=== PATIENT | female | born 1975 | race Two or more races ===

== ENCOUNTER 2016-10-29 11:31 | Emergency (ER) | payer BC ==
[~2016-10-29] VITALS: Ht 162.6 cm; Wt 56.2 kg
[~2016-10-29 11:31] MED LIST: IBUPROFEN400 MG ORAL; NITROFURANTOIN100 M2 ORAL; NKM; REGLAN10 MG ORAL
[2016-10-29 11:49] VITALS: BP 127/75
[2016-10-29] MEDS ORDERED: ROBAXIN-750750 MG PO (11:54)
[2016-10-29] MEDS ORDERED: IBUPROFEN600 MG ORAL (11:54)
[2016-10-29] MEDS ORDERED: Ketorolac 60mg Inj IM ONE (12:00)
[2016-10-29] MEDS ORDERED: Methocarbamol 750mg tab ORAL ONE (12:00)
[2016-10-29 12:08] VITALS: BP 127/75
--- NOTE | 2016-10-29 12:24 | Emergency Room Report ---
History of Present Illness General Chief Complaint: Back Pain-No Injury Source: Patient Present Illness HPI [id number] [employer] patient with midline lower back pain s/p heavy lifting yesterday. Took motrin last night with improvement. Pain worse with movement, bending over. Denies urinary complaints, lower extrem weakness. Denies other med problems. Allergies: Coded Allergies: No Known Allergies (Unverified , 04/29/13) Patient History Past Medical History: none Past Surgical History: none Pertinent Family History: none Social History: Denies: alcohol use, drug use, smoking Last Menstrual Period: 10/25/16 Immunizations: UTD Reviewed Nursing Documentation: PMH: Agreed, PSxH: Agreed Nursing Documentation-PMH Past Medical History: No History, Except For Hx Cardiac Problems: Yes - HX PALPITATIONS Hx Cancer: No Hx Gastrointestinal Problems: No Hx Neurological Problems: No Review of Systems All Other Systems: negative except mentioned in HPI Physical Exam Vital Signs Date Time Temp Pulse Resp B/P Pulse Ox O2 Delivery O2 Flow Rate FiO2 10/29/16 11:40 98.1 64 17 127/75 98 Room Air Sp02 EP Interpretation: reviewed, normal General Appearance: normal inspection, well appearing, no apparent distress, alert Head: atraumatic ENT: normal ENT inspection, hearing grossly normal, normal voice Neck: normal inspection, full range of motion, supple, no bony tend Respiratory: normal inspection, lungs clear, normal breath sounds, no respiratory distress, no retraction, no wheezing Cardiovascular #1: regular rate, rhythm, no edema Gastrointestinal: normal inspection, normal bowel sounds, non tender, soft, no guarding, no hernia Genitourinary: no CVA tenderness Musculoskeletal: normal inspection, back normal, normal range of motion, John' s Sign negative, other - Mild right paravertebral tpp Neurologic: normal inspection, alert, oriented x3, responsive, licsw III-XII nml as tested, speech normal Psychiatric: normal inspection, judgement/insight normal, mood/affect normal Skin: normal inspection, normal color, no rash Medical Decision Making Diagnostic Impression: Primary Impression: Back pain Qualified Codes: M54.5 - Low back pain ER Course A: low suspicion for cord compression given well appearance,right paravertebral ttp, no focal neuro deficits, absence of midline ttp/masses and pain worse with movement with known exacerbating activity Rx Robaxin, Ibuprofen PMD followup as needed Last Vital Signs Date Time Temp Pulse Resp B/P Pulse Ox O2 Delivery O2 Flow Rate FiO2 10/29/16 12:08 98.1 64 17 127/75 98 Room Air Status: improved Disposition: HOME, SELF-CARE Condition: Improved Scripts Ibuprofen* (MOTRIN*) 600 Mg Tablet 600 MG ORAL THREE TIMES A DAY for back pain for 7 Days, #30 TAB 0 Refills Prov: GALINA MASON M.D. 10/29/16 Methocarbamol* (ROBAXIN-750*) 750 Mg Tablet 750 MG PO TID for 7 Days, #30 TAB 0 Refills Prov: GALINA MASON M.D. 10/29/16 Referrals: NOT CHOSEN IPA/,REFERRING (PCP) Patient Instructions: Back Pain, Adult Additional Instructions: - Take ibuprofen with robaxin up to 3x a day with food for pain - Stretch back muscles, apply heat GALINA MASON M.D. Oct 29, 2016 12:23
== END 2016-10-29 12:06 | disposition home or self-care (01) ==
LOC: EMR 12:00
DX: M54.5 Low back pain (principal); X50.0XXA Overexertion from strenuous movement or load, initial encounter; Y92.89 Other specified places as the place of occurrence of the external cause
CPT/HCPCS: 96372; 99284

== ENCOUNTER 2016-12-12 09:08 | Emergency (ER) | payer BC ==
[~2016-12-12] VITALS: Ht 162.6 cm; Wt 51.3 kg
[~2016-12-12 09:08] MED LIST changes: +IBUPROFEN600 MG ORAL; +ROBAXIN-750750 MG PO
[2016-12-12 09:13] VITALS: BP 110/72
[2016-12-12] MEDS ORDERED: Tubing IV Cassette IV ONE (09:49)
[2016-12-12 10:13] LABS: APPEARANCE,URINE SLIGHTLY CLOUDY; KETONES,URINE NEGATIVE (NEGATIVE); NITRITE,URINE NEGATIVE (NEGATIVE); PH,URINE 6.5 (4.5-8.0); PROTEIN,URINE NEGATIVE (NEGATIVE); UROBILINOGEN,URINE NORMAL MG/DL (0.0-1.0)
[2016-12-12 10:18] LABS: BASOPHILS % (AUTO) 1.1 % (0.0-2.0); EOSINOPHILS % (AUTO) 2.2 % (0.0-3.0); LYMPHOCYTES % (AUTO) 38.6 % (20.0-45.0); MEAN CORPUSCULAR HEMOGLOBIN 31.4 PG (27.0-31.0); MEAN CORPUSCULAR HGB CONC 33.3 G/DL (32.0-36.0); MEAN CORPUSCULAR VOLUME 94 FL (80-99); MEAN PLATELET VOLUME 10.2 FL (6.5-10.1); MONOCYTES % (AUTO) 8.6 % (1.0-10.0); NEUTROPHILS % (AUTO) 49.5 % (45.0-75.0); PLATELET COUNT 168 K/UL (150-450); RED BLOOD COUNT 4.83 M/UL (4.20-5.40); RED CELL DISTRIBUTION WIDTH 11.6 % (11.6-14.8); WHITE BLOOD COUNT 4.6 K/UL (4.8-10.8)
[2016-12-12 10:27] LABS: BACTERIA,URINE FEW /HPF; LEUKOCYTE ESTERASE ,URINE 2+ (NEGATIVE); MUCUS,URINE OCCASIONAL /LPF (NONE/OCC); RBC,URINE 0-2 /HPF (0 - 2); SQUAMOUS EPITHELIAL CELL,UR FEW /LPF (NONE/OCC)
[2016-12-12 10:30] LABS: ALANINE AMINOTRANSFERASE 7 U/L (3-33); ALBUMIN/GLOBULIN RATIO 1.3 (1.0-2.7); ANION GAP 11 (5-15); ASPARTATE AMINO TRANSFERASE 15 U/L (5-40); CALCIUM 9.2 mg/dL (8.6-10.2); CARBON DIOXIDE 23 mEQ/L (20-30); CHLORIDE 105 mEQ/L (98-107); CREATININE 0.8 mg/dL (0.5-0.9); GLOMERULAR FILTRATION RATE > 60 mL/min (>60); HEMOLYSIS 7; LIPASE 28 U/L (< 60); POTASSIUM 3.8 mEQ/L (3.4-4.9); SODIUM 139 mEQ/L (135-145); TOTAL PROTEIN 7.9 g/dL (6.6-8.7)
[2016-12-12 11:30] VITALS: BP 107/64
--- NOTE | 2016-12-12 13:02 | Diagnostic Imaging Report ---
Indication:Abdominal pain Technique: Grayscale and duplex Doppler imaging of the abdomen performed. Comparison: None Findings: The liver, demonstrated part of the pancreas, aorta and IVC, both kidneys, spleen appear unremarkable. There is small gallbladder polyp present. CBD is 3.8 mm. There is no biliary ductal dilatation identified. Doppler evaluation of the main portal vein shows patency. There is no ascites. No hydronephrosis seen. Impression: No acute findings. Gallbladder polyp
--- NOTE | 2016-12-12 14:43 | Emergency Room Report ---
History of Present Illness General Chief Complaint: Abdominal Pain Source: Patient Present Illness HPI Patient complains of right upper quadrant abdominal pain. She states that this has been ongoing for the past couple weeks. She did make an appointment with her primary care physician he presents today because she was having increasing pain. She states the pain radiates to her back. She denies nausea or vomiting. She denies fever or chills. She denies dysuria or hematuria. She denies diarrhea. She has no other complaints. Allergies: Coded Allergies: No Known Allergies (Unverified , 04/29/13) Patient History Past Medical History: see triage record, other - Palpitations Social History: Denies: alcohol use, drug use, smoking Last Menstrual Period: 7-21 Now: No Reviewed Nursing Documentation: PMH: Agreed, PSxH: Agreed Nursing Documentation-PMH Past Medical History: No History, Except For Hx Cardiac Problems: Yes - HX PALPITATIONS Hx Cancer: No Hx Gastrointestinal Problems: No Hx Neurological Problems: No Review of Systems All Other Systems: negative except mentioned in HPI Physical Exam Vital Signs Date Time Temp Pulse Resp B/P Pulse Ox O2 Delivery O2 Flow Rate FiO2 12/12/16 09:13 98.2 73 18 110/72 98 Room Air Sp02 EP Interpretation: reviewed, normal General Appearance: no apparent distress, alert, GCS 15, non-toxic Head: normocephalic, atraumatic Eyes: bilateral eye PERRL, bilateral eye normal inspection ENT: hearing grossly normal, normal pharynx, no angioedema, normal voice Neck: full range of motion, supple/symm/no masses Respiratory: chest non-tender, lungs clear, normal breath sounds, speaking full sentences Cardiovascular #1: regular rate, rhythm, no edema Gastrointestinal: normal bowel sounds, soft, non-distended, no guarding, no rebound, tenderness - TTP RUQ Rectal: deferred Musculoskeletal: back normal, gait/station normal, normal range of motion, non- tender Neurologic: alert, oriented x3, responsive, motor strength/tone normal, sensory intact, speech normal Psychiatric: judgement/insight normal, memory normal, mood/affect normal, no suicidal/homicidal ideation Skin: normal color, no rash, warm/dry, well hydrated Medical Decision Making Diagnostic Impression: Primary Impression: Abdominal pain ER Course This patient has a right upper quadrant abdominal pain. She is to palpation on exam. I did obtain a right upper quadrant ultrasound which showed only an incidental finding of a small gallbladder polyp. I reassessed the patient she continued to have tenderness on exam and pain, so I felt it should obtain a CT of the abdomen and pelvis. Laboratory workup to include CBC, CMP, lipase and urinalysis are unremarkable. The patient is pending a CT abdomen and pelvis at this time. Please see Dr. Murphy note for results. Anticipate discharge home with followup with primary care physician if CT negative. Labs Test 12/12/16 09:45 White Blood Count 4.6 K/UL (4.8-10.8) Red Blood Count 4.83 M/UL (4.20-5.40) Hemoglobin 15.1 G/DL (12.0-16.0) Hematocrit 45.5 % (37.0-47.0) Mean Corpuscular Volume 94 FL (80-99) Mean Corpuscular Hemoglobin 31.4 PG (27.0-31.0) Mean Corpuscular Hemoglobin Concent 33.3 G/DL (32.0-36.0) Red Cell Distribution Width 11.6 % (11.6-14.8) Platelet Count 168 K/UL (150-450) Mean Platelet Volume 10.2 FL (6.5-10.1) Neutrophils (%) (Auto) 49.5 % (45.0-75.0) Lymphocytes (%) (Auto) 38.6 % (20.0-45.0) Monocytes (%) (Auto) 8.6 % (1.0-10.0) Eosinophils (%) (Auto) 2.2 % (0.0-3.0) Basophils (%) (Auto) 1.1 % (0.0-2.0) Urine Color Pale yellow Urine Appearance Slightly cloudy Urine pH 6.5 (4.5-8.0) Urine Specific [place] 1.005 (1.005-1.035) Urine Protein Negative (NEGATIVE) Urine Glucose (UA) Negative (NEGATIVE) Urine Ketones Negative (NEGATIVE) Urine Occult Blood Negative (NEGATIVE) Urine Nitrite Negative (NEGATIVE) Urine Bilirubin Negative (NEGATIVE) Urine Urobilinogen Normal MG/DL (0.0-1.0) Urine Leukocyte Esterase 2+ (NEGATIVE) Urine RBC 0-2 /HPF (0 - 2) Urine WBC 2-4 /HPF (0 - 2) Urine Squamous Epithelial Cells Few /LPF (NONE/OCC) Urine Bacteria Few /HPF (NONE) Urine Mucus Occasional /LPF Urine HCG, Qualitative Negative Sodium Level 139 mEQ/L (135-145) Potassium Level 3.8 mEQ/L (3.4-4.9) Chloride Level 105 mEQ/L (98-107) Carbon Dioxide Level 23 mEQ/L (20-30) Anion Gap 11 (5-15) Blood Urea Nitrogen 6 mg/dL (7-23) Creatinine 0.8 mg/dL (0.5-0.9) Estimat Glomerular Filtration Rate > 60 mL/min (>60) Glucose Level 93 mg/dL (74-106) Calcium Level 9.2 mg/dL (8.6-10.2) Total Bilirubin 0.4 mg/dL (0.0-1.2) Aspartate Amino Transf (AST/SGOT) 15 U/L (5-40) Alanine Aminotransferase (ALT/SGPT) 7 U/L (3-33) Alkaline Phosphatase 60 U/L (35-104) Total Protein 7.9 g/dL (6.6-8.7) Albumin 4.5 g/dL (3.5-5.2) Globulin 3.4 g/dL Albumin/Globulin Ratio 1.3 (1.0-2.7) Lipase 28 U/L (< 60) CT/MRI/US Diagnostic Results CT/MRI/US Diagnostic Results : Imaging Test Ordered: RUQ US: Impression Small GB polyp, OTW unremarkable. See official report. Last Vital Signs Date Time Temp Pulse Resp B/P Pulse Ox O2 Delivery O2 Flow Rate FiO2 12/12/16 11:30 61 16 107/64 95 Room Air 12/12/16 09:13 98.2 Condition: Stable Referrals: NON PHYSICIAN (PCP) TIEN DUENAS D.O. Dec 12, 2016 14:43
[2016-12-12] MEDS ORDERED: Lidocaine 2% Visc 15ml soln ORAL ONE (14:45)
[2016-12-12] MEDS ORDERED: Famotidine 20 MG/ 2ML VIAL IVP ONE (14:45)
[2016-12-12 16:00] VITALS: BP 115/61
--- NOTE | 2016-12-12 16:44 | Diagnostic Imaging Report ---
Indication: Abdominal pain Technique: Continuous helical transaxial imaging of the abdomen and pelvis was obtained from the lung bases to the pubic symphysis. No intravenous contrast was administered. Coronal 2-D reformats were also obtained. Total Dose length Product (DLP): [address] Dose Index Volume (CTDIvol): 10 mGy Comparison: none Findings: The lung bases appear clear. No nephrolithiasis or hydronephrosis demonstrated. The ureters are poorly seen distally due to relative absence of intra-abdominal fat. The appendix is normal. The bladder is distended. Uterus noted. Small amount of free fluid noted in the cul-de-sac. Bowel gas pattern appears unremarkable. Impression: Negative noncontrast CT abdomen pelvis The CT scanner at [facility] is accredited by the [employer] and the scans are performed using dose optimization techniques as appropriate to a performed exam including Automatic Exposure control.
[2016-12-12] MEDS ORDERED: BENTYL10 MG ORAL (16:54)
[2016-12-12] MEDS ORDERED: ZOFRAN4 M3 ORAL (16:54)
[2016-12-12] MEDS ORDERED: PRILOSEC10 M1 ORAL (16:54)
[2016-12-12 17:11] VITALS: BP 115/61
== END 2016-12-12 17:12 | disposition home or self-care (01) ==
LOC: EMR 09:48
DX: R10.11 Right upper quadrant pain (principal); R00.2 Palpitations
CPT/HCPCS: 36415; 74176; 76700; 80053; 81003; 81025; 83690; 85025; 96360; 96361; 96374; 99284; S0028

== ENCOUNTER 2017-04-04 09:19 | Emergency (ER) | payer BC ==
[~2017-04-04] VITALS: Ht 157.5 cm; Wt 49.9 kg
[~2017-04-04 09:19] MED LIST changes: +BENTYL10 MG ORAL; +PRILOSEC10 M1 ORAL; +ZOFRAN4 M3 ORAL
[2017-04-04 09:40] VITALS: BP 114/76
[2017-04-04] MEDS ORDERED: Sodium Chloride 500ML 500 ML IV ONE (09:50)
[2017-04-04 10:08] LABS: BASOPHILS % (AUTO) 0.9 % (0.0-2.0); EOSINOPHILS % (AUTO) 1.5 % (0.0-3.0); LYMPHOCYTES % (AUTO) 34.3 % (20.0-45.0); MEAN CORPUSCULAR HEMOGLOBIN 30.3 PG (27.0-31.0); MEAN CORPUSCULAR HGB CONC 32.6 G/DL (32.0-36.0); MEAN CORPUSCULAR VOLUME 93 FL (80-99); MEAN PLATELET VOLUME 8.6 FL (6.5-10.1); MONOCYTES % (AUTO) 8.6 % (1.0-10.0); NEUTROPHILS % (AUTO) 54.7 % (45.0-75.0); PLATELET COUNT 178 K/UL (150-450); RED BLOOD COUNT 4.95 M/UL (4.20-5.40); RED CELL DISTRIBUTION WIDTH 11.6 % (11.6-14.8); WHITE BLOOD COUNT 4.9 K/UL (4.8-10.8)
[2017-04-04 10:13] LABS: APPEARANCE,URINE CLEAR; KETONES,URINE NEGATIVE (NEGATIVE); LEUKOCYTE ESTERASE ,URINE 1+ (NEGATIVE); NITRITE,URINE NEGATIVE (NEGATIVE); PH,URINE 7 (4.5-8.0); PROTEIN,URINE NEGATIVE (NEGATIVE); UROBILINOGEN,URINE NORMAL MG/DL (0.0-1.0)
[2017-04-04 10:28] LABS: RBC,URINE 0-2 /HPF (0 - 2)
[2017-04-04 10:29] LABS: BACTERIA,URINE FEW /HPF; SQUAMOUS EPITHELIAL CELL,UR MODERATE /LPF (NONE/OCC)
[2017-04-04 10:56] LABS: ANION GAP 9 mmol/L (5-15); CARBON DIOXIDE 26 MMOL/L (21-32); CHLORIDE 105 MMOL/L (98-107); CREATININE 0.8 MG/DL (0.55-1.30); GLOMERULAR FILTRATION RATE > 60 mL/min (>60); POTASSIUM 3.7 MMOL/L (3.5-5.1); SODIUM 140 MMOL/L (136-145)
[2017-04-04 11:00] LABS: ALANINE AMINOTRANSFERASE 17 U/L (12-78); ALBUMIN/GLOBULIN RATIO 1.1 (1.0-2.7); ASPARTATE AMINO TRANSFERASE 17 U/L (15-37); LIPASE 163 U/L (73-393); TOTAL PROTEIN 7.9 G/DL (6.4-8.2)
[2017-04-04] MEDS ORDERED: Ketorolac 30mg Inj IV ONE (12:45)
[2017-04-04] MEDS ORDERED: ACETAMINOPHEN-1 EAC1 ORAL (12:46)
[2017-04-04] MEDS ORDERED: IBUPROFEN600 MG ORAL (12:46)
[2017-04-04 13:00] VITALS: BP 151/71
--- NOTE | 2017-04-04 14:32 | Diagnostic Imaging Report ---
Indication: Left-sided pelvic pain x5 days, negative urine test Technique: Transabdominal images only. Patient unable to tolerate endovaginal imaging Comparison: None Findings: Exam is limited due to lack of transvaginal images. Uterus measures 8.9 cm in length by 4 cm AP. The endometrium measures 7 mm in thickness. No myometrial abnormality. Left ovary measures 3.3 cm in length. Right ovary measures 3.6 cm in length. No adnexal mass demonstrated. Normal ovarian Doppler flow demonstrated. There is a small amount of free pelvic fluid Impression: Limited exam due to lack of endovaginal images Small amount of free pelvic fluid, presumably physiologic Negative for adnexal mass or other acute pathology
--- NOTE | 2017-04-05 07:23 | Emergency Room Report ---
History of Present Illness General Chief Complaint: Abdominal Pain Source: Patient Present Illness HPI 41-year-old female presents ED complaining of abdominal pain x2 days. States pain is 5/10, dull, nonradiating. Localized suprapubic area. Denies fevers or chills. Denies dysuria or hematuria. Denies flank pain nausea or vomiting. Denies vaginal bleeding or discharge. No other aggravating relieving factors. Denies any other associated symptoms Allergies: Coded Allergies: No Known Allergies (Unverified , 04/29/13) Patient History Past Medical History: none Past Surgical History: none Pertinent Family History: none Social History: Denies: smoking, alcohol use, drug use Now: No Immunizations: UTD Reviewed Nursing Documentation: PMH: Agreed, PSxH: Agreed Nursing Documentation-PMH Past Medical History: No Stated History Hx Cardiac Problems: Yes - HX PALPITATIONS Hx Cancer: No Hx Gastrointestinal Problems: No Hx Neurological Problems: No Review of Systems All Other Systems: negative except mentioned in HPI Physical Exam Vital Signs Date Time Temp Pulse Resp B/P (MAP) Pulse Ox O2 Delivery O2 Flow Rate FiO2 04/04/17 09:28 97.7 78 16 114/76 98 Room Air Sp02 EP Interpretation: reviewed, normal General Appearance: no apparent distress, alert, GCS 15, non-toxic Head: normocephalic, atraumatic Eyes: bilateral eye normal inspection, bilateral eye PERRL ENT: hearing grossly normal, normal pharynx, no angioedema, normal voice Neck: full range of motion, supple/symm/no masses Respiratory: chest non-tender, lungs clear, normal breath sounds, speaking full sentences Cardiovascular #1: regular rate, rhythm, no edema Cardiovascular #2: 2+ carotid (R), 2+ carotid (L), 2+ radial (R), 2+ radial (L) , 2+ dorsalis pedis (R), 2+ dorsalis pedis (L) Gastrointestinal: normal bowel sounds, soft, non-distended, no guarding, no rebound, tenderness Rectal: deferred Genitourinary: normal inspection, no CVA tenderness Musculoskeletal: back normal, gait/station normal, normal range of motion, non- tender Neurologic: alert, oriented x3, responsive, motor strength/tone normal, sensory intact, speech normal Psychiatric: judgement/insight normal, memory normal, mood/affect normal, no suicidal/homicidal ideation Reflexes: 3+ bicep (R), 3+ bicep (L), 3+ tricep (R), 3+ tricep (L), 3+ knee (R) , 3+ knee (L) Skin: normal color, no rash, warm/dry, well hydrated Lymphatic: no adenopathy Medical Decision Making Diagnostic Impression: Primary Impression: Ovarian cyst Qualified Codes: N83.202 - Unspecified ovarian cyst, left side ER Course Hospital Course 41-year-old F presents to ED with lower abdominal pain Differential diagnosis includes- cystitis, UTI, constipation, ovarian cyst/ torsion Clinical course Patient placed on stretcher. After initial history and physical I ordered labs , IV fluids, Pelvic US Labs - no leukocytosis, electrolytes ok, LFTs normal, UA unremarkable Pelvic US - L ovarian cyst, + free fluid. good flow to ovary noted Patient can be safely discharged to home at this time I feel this is a highly complex case requiring extensive working including EKG/ Rhythm strip, Xray/CT/US, Blood/urine lab work, repeat exams while in ED, and administration of strong opiates/narcotics for pain control, admission to hospital or close patient follow up. Diagnosis - ovarian cyst Stable and discharged to home. Followup with PMD. Return to ED if symptoms recur or worsen Labs Test 04/04/17 09:55 White Blood Count 4.9 K/UL (4.8-10.8) Red Blood Count 4.95 M/UL (4.20-5.40) Hemoglobin 15.0 G/DL (12.0-16.0) Hematocrit 46.1 % (37.0-47.0) Mean Corpuscular Volume 93 FL (80-99) Mean Corpuscular Hemoglobin 30.3 PG (27.0-31.0) Mean Corpuscular Hemoglobin Concent 32.6 G/DL (32.0-36.0) Red Cell Distribution Width 11.6 % (11.6-14.8) Platelet Count 178 K/UL (150-450) Mean Platelet Volume 8.6 FL (6.5-10.1) Neutrophils (%) (Auto) 54.7 % (45.0-75.0) Lymphocytes (%) (Auto) 34.3 % (20.0-45.0) Monocytes (%) (Auto) 8.6 % (1.0-10.0) Eosinophils (%) (Auto) 1.5 % (0.0-3.0) Basophils (%) (Auto) 0.9 % (0.0-2.0) Urine Color Pale yellow Urine Appearance Clear Urine pH 7 (4.5-8.0) Urine Specific [place] 1.010 (1.005-1.035) Urine Protein Negative (NEGATIVE) Urine Glucose (UA) Negative (NEGATIVE) Urine Ketones Negative (NEGATIVE) Urine Occult Blood Negative (NEGATIVE) Urine Nitrite Negative (NEGATIVE) Urine Bilirubin Negative (NEGATIVE) Urine Urobilinogen Normal MG/DL (0.0-1.0) Urine Leukocyte Esterase 1+ (NEGATIVE) Urine RBC 0-2 /HPF (0 - 2) Urine WBC 2-4 /HPF (0 - 2) Urine Squamous Epithelial Cells Moderate /LPF (NONE/OCC) Urine Bacteria Few /HPF (NONE) Urine HCG, Qualitative Negative Sodium Level 140 MMOL/L (136-145) Potassium Level 3.7 MMOL/L (3.5-5.1) Chloride Level 105 MMOL/L (98-107) Carbon Dioxide Level 26 MMOL/L (21-32) Anion Gap 9 mmol/L (5-15) Blood Urea Nitrogen 8 mg/dL (7-18) Creatinine 0.8 MG/DL (0.55-1.30) Estimat Glomerular Filtration Rate > 60 mL/min (>60) Glucose Level 97 MG/DL (74-106) Calcium Level 9.0 MG/DL (8.5-10.1) Total Bilirubin 0.5 MG/DL (0.2-1.0) Aspartate Amino Transf (AST/SGOT) 17 U/L (15-37) Alanine Aminotransferase (ALT/SGPT) 17 U/L (12-78) Alkaline Phosphatase 70 U/L (46-116) Total Protein 7.9 G/DL (6.4-8.2) Albumin 4.1 G/DL (3.4-5.0) Globulin 3.8 g/dL Albumin/Globulin Ratio 1.1 (1.0-2.7) Lipase 163 U/L (73-393) CT/MRI/US Diagnostic Results CT/MRI/US Diagnostic Results : Imaging Test Ordered: Pelvic US Impression L ovarian cyst. + free fluid in cul de sac Last Vital Signs Date Time Temp Pulse Resp B/P (MAP) Pulse Ox O2 Delivery O2 Flow Rate FiO2 04/04/17 13:00 97.7 71 16 151/71 99 Room Air Status: improved Disposition: HOME, SELF-CARE Condition: Stable Scripts Acetaminophen With Codeine (T#3) (TYLENOL #3 TAB*) Y Tab 1 TAB ORAL Q8H Y for For Pain, #20 TAB Prov: RODRIGO CENTENO M.D. 04/04/17 Ibuprofen* (MOTRIN*) 600 Mg Tablet 600 MG ORAL Q8H Y for For Pain, #30 TAB 0 Refills Prov: RODRIGO CENTENO M.D. 04/04/17 Referrals: NON PHYSICIAN Patient Instructions: Ovarian Cyst, [id number] RODRIGO CENTENO M.D. Apr 05, 2017 07:22
== END 2017-04-04 13:00 | disposition home or self-care (01) ==
LOC: EMR 10:04
DX: N83.299 Other ovarian cyst, unspecified side (principal)
CPT/HCPCS: 36415; 76856; 80053; 81003; 81025; 83690; 85025; 96361; 96374; 99284; J1885; J7040

== ENCOUNTER 2017-06-13 09:01 | Emergency (ER) | payer BC ==
[~2017-06-13] VITALS: Ht 162.6 cm; Wt 56.2 kg
[~2017-06-13 09:01] MED LIST changes: +ACETAMINOPHEN-1 EAC1 ORAL
[2017-06-13 09:51] LABS: APPEARANCE,URINE CLEAR; BILIRUBIN, URINE NEGATIVE (NEGATIVE); COLOR,URINE PALE YELLOW; GLUCOSE, URINE (UA) NEGATIVE (NEGATIVE); KETONES,URINE NEGATIVE (NEGATIVE); LEUKOCYTE ESTERASE ,URINE 3+ (NEGATIVE); NITRITE,URINE NEGATIVE (NEGATIVE); PH,URINE 7 (4.5-8.0); PROTEIN,URINE NEGATIVE (NEGATIVE); UROBILINOGEN,URINE NORMAL MG/DL (0.0-1.0)
--- NOTE | 2017-06-13 11:06 | Diagnostic Imaging Report ---
Indication: Cough Technique: One view of the chest Comparison: none Findings: Lungs and pleural spaces are clear. Heart size is normal Impression: No acute process
--- NOTE | 2017-06-13 13:00 | Emergency Room Report ---
History of Present Illness General Chief Complaint: Upper Respiratory Illness Source: Patient Present Illness HPI Patient complains of bodyaches and congestion. She is concerned that she has the flu. She has had subjective fever and chills. She denies cough or chest pain. She denies abdominal pain. She denies nausea or vomiting. He denies dysuria or hematuria. She denies neck pain or headache. She denies blurry vision. She has no other complaints. Allergies: Coded Allergies: No Known Allergies (Unverified , 04/29/13) Patient History Past Medical History: see triage record Social History: Denies: smoking, alcohol use, drug use Last Menstrual Period: 05/25/17 Now: No Reviewed Nursing Documentation: PMH: Agreed, PSxH: Agreed Nursing Documentation-PMH Past Medical History: No Stated History Hx Cardiac Problems: Yes - HX PALPITATIONS Hx Cancer: No Hx Gastrointestinal Problems: No Hx Neurological Problems: No Review of Systems All Other Systems: negative except mentioned in HPI Physical Exam Vital Signs Date Time Temp Pulse Resp B/P (MAP) Pulse Ox O2 Delivery O2 Flow Rate FiO2 06/13/17 09:04 98.8 104 16 114/75 98 Room Air Sp02 EP Interpretation: reviewed, normal General Appearance: no apparent distress, alert, GCS 15, non-toxic Head: normocephalic, atraumatic Eyes: bilateral eye normal inspection, bilateral eye PERRL ENT: hearing grossly normal, normal pharynx, no angioedema, normal voice Neck: full range of motion, supple/symm/no masses Respiratory: chest non-tender, lungs clear, normal breath sounds, speaking full sentences Cardiovascular #1: regular rate, rhythm, no edema Gastrointestinal: normal bowel sounds, non tender, soft, non-distended, no guarding, no rebound Rectal: deferred Musculoskeletal: back normal, gait/station normal, normal range of motion, non- tender Neurologic: alert, oriented x3, responsive, motor strength/tone normal, sensory intact, speech normal Psychiatric: judgement/insight normal, memory normal, mood/affect normal, no suicidal/homicidal ideation Skin: normal color, no rash, warm/dry, well hydrated Medical Decision Making Diagnostic Impression: Primary Impression: Viral syndrome ER Course This patient has a clinical presentation consistent with viral syndrome. Symptoms are nonspecific. There are no red flags on physical exam that would make me concerned for serious illness. This includes no evidence of meningitis , intra-abdominal process that would make me concerned for appendicitis or diverticulitis or other surgical or emergency etiology. Overall, this patient' s presentation is benign and the patient is nontoxic. Laboratory workup is negative. There is no evidence of an emergency medical condition. The patient is given close return precautions and followup instructions. Laboratory Tests Test 06/13/17 09:25 Urine Color Pale yellow Urine Appearance Clear Urine pH 7 (4.5-8.0) Urine Specific [place] 1.010 (1.005-1.035) Urine Protein Negative (NEGATIVE) Urine Glucose (UA) Negative (NEGATIVE) Urine Ketones Negative (NEGATIVE) Urine Occult Blood 1+ (NEGATIVE) H Urine Nitrite Negative (NEGATIVE) Urine Bilirubin Negative (NEGATIVE) Urine Urobilinogen Normal MG/DL (0.0-1.0) Urine Leukocyte Esterase 3+ (NEGATIVE) H Urine RBC 0-2 /HPF (0 - 2) Urine WBC 10-15 /HPF (0 - 2) H Urine Squamous Epithelial Cells Few /LPF (NONE/OCC) Urine Bacteria Few /HPF (NONE) Microbiology Date/Time Source Procedure Growth Status 06/13/17 09:25 Nasal Nares Influenza Types A,B Antigen ([facility]PRE[facility]) - Final Complete Last Vital Signs Date Time Temp Pulse Resp B/P (MAP) Pulse Ox O2 Delivery O2 Flow Rate FiO2 06/13/17 09:04 98.8 104 16 114/75 98 Room Air Disposition: HOME, SELF-CARE Condition: Improved Referrals: EMILIANA SPAULDING (PCP) TIEN DUENAS D.O. Jun 13, 2017 13:00
[2017-06-13 13:23] VITALS: BP 114/75
== END 2017-06-13 13:40 | disposition home or self-care (01) ==
LOC: EMR 09:10
DX: B34.9 Viral infection, unspecified (principal)
CPT/HCPCS: 71045; 81003; 86710; 87086; 99284

== ENCOUNTER 2018-01-17 18:44 | Emergency (ER) | payer BC ==
[~2018-01-17] VITALS: Ht 162.6 cm; Wt 52.2 kg
[2018-01-17 19:15] VITALS: BP 115/71
[2018-01-17] MEDS ORDERED: Tetanus/Diptheria/Pertussis Vaccine 0.5ml Syr IM ONE (19:30)
--- NOTE | 2018-01-17 19:32 | Emergency Room Report ---
History of Present Illness General Chief Complaint: Animal Bite Source: Patient Present Illness HPI 42-year-old female presents to the emergency department complaining of 9 out of 10 in severity localized pain, swelling, erythema and tenderness to a small area on the medial left calf 2 days. Patient reports 2 days ago she sustained insect bite. Patient reports the next day she began having swelling, erythema and some tenderness. Patient denies fevers or chills she states she's not significant tetanus vaccination. She reports mild itching in the beginning which has the most part resolved. Denies lesions or rash elsewhere. Patient denies swelling of the lips or tongue, wheezing or difficulty breathing. Allergies: Coded Allergies: No Known Allergies (Unverified , 04/29/13) Patient History Past Medical History: see triage record Past Surgical History: none Pertinent Family History: none Last Menstrual Period: unk Now: No Reviewed Nursing Documentation: PMH: Agreed; PSxH: Agreed Nursing Documentation-PMH Hx Cardiac Problems: Yes - HX PALPITATIONS Hx Cancer: No Hx Gastrointestinal Problems: No Hx Neurological Problems: No Review of Systems All Other Systems: negative except mentioned in HPI Physical Exam Vital Signs Date Time Temp Pulse Resp B/P (MAP) Pulse Ox O2 Delivery O2 Flow Rate FiO2 01/17/18 19:00 98.4 81 18 115/71 99 Room Air 98.4 Sp02 EP Interpretation: reviewed, normal General Appearance: no apparent distress, alert, GCS 15, non-toxic Head: normocephalic, atraumatic Eyes: bilateral eye normal inspection, bilateral eye PERRL ENT: hearing grossly normal, normal voice, other - no swelling of the lips or tongue, no stridor Neck: full range of motion Respiratory: chest non-tender, lungs clear, normal breath sounds, no wheezing, speaking full sentences Cardiovascular #1: regular rate, rhythm Musculoskeletal: back normal, gait/station normal, normal range of motion, non- tender - no bony ttp, superficial ST ttp. Neurologic: alert, oriented x3, responsive, motor strength/tone normal, sensory intact, normal gait, speech normal, grossly normal Psychiatric: judgement/insight normal Skin: normal color, warm/dry, well hydrated, other - nsect bite, localized reaction, moderate non-blanching surrounding erythema that 3cm diameter - medial left calf Lymphatic: no adenopathy Medical Decision Making PA Attestation Dr. aguilera is my supervising Physician whom patient management has been discussed with. Diagnostic Impression: Primary Impression: Insect bite Qualified Codes: W57.XXXA - Bitten or stung by nonvenomous insect and other nonvenomous arthropods, initial encounter ER Course 42-year-old female presents to the emergency department complaining of 9 out of 10 in severity localized pain, swelling, erythema and tenderness to a small area on the medial left calf 2 days. Patient reports 2 days ago she sustained insect bite. Patient reports the next day she began having swelling, erythema and some tenderness. Patient denies fevers or chills she states she's not significant tetanus vaccination. She reports mild itching in the beginning which has the most part resolved. Denies lesions or rash elsewhere. Patient denies swelling of the lips or tongue, wheezing or difficulty breathing. Ddx considered but are not limited to cellulitis, scabies, insect bites, tic bites, spider bites, contact dermatitis, Drug reaction, allergic reaction, fungal infection, lice. Vital signs: are WNL, pt. is afebrile H&PE are most consistent with insect bite, localized reaction, moderate non- blanching surrounding erythema that 3cm diameter - medial left calf ORDERS: none required at this time, the diagnosis is clinical ED INTERVENTIONS: -Tdap DISCHARGE: At this time pt. is stable for d/c to home. Will provide printed patient care instructions, and any necessary prescriptions. Care plan and follow up instructions have been discussed with the patient prior to discharge. Last Vital Signs Date Time Temp Pulse Resp B/P (MAP) Pulse Ox O2 Delivery O2 Flow Rate FiO2 01/17/18 19:00 98.4 81 18 115/71 99 Room Air 98.4 Disposition: HOME, SELF-CARE Condition: Stable Scripts Bacitracin/Polymyxin B Sulfate (BACITRACIN-POLYMYXIN OINTMENT) 28.35 Gm Oint...g. 1 APPLIC TP BID, #28.3 GM Prov: Tamara Dooley 01/17/18 Acetaminophen* (TYLENOL EXTRA STRENGTH*) 500 Mg Tablet 500 MG ORAL Q6H, #20 TAB 0 Refills Prov: Tamara Dooley 01/17/18 Cephalexin* (KEFLEX*) 500 Mg Capsule 500 MG ORAL EVERY 12 HOURS for 7 Days, #14 CAP 0 Refills Prov: Tamara Dooley 01/17/18 Patient Instructions: Insect Bite, [id number] Additional Instructions: Take medications as directed. Follow up with a Primary Care Provider in 3-5 days, even if your symptoms have resolved. --Please review list of primary care clinics, if you do not already have a primary care provider Return sooner to ED if new symptoms occur, or current symptoms become worse. - Please note that this Emergency Department Report was dictated using [employer] design engineer technology software, occasionally this can lead to erroneous entry secondary to interpretation by the dictation equipment. Tamara Dooley Jan 17, 2018 19:32
[2018-01-17] MEDS ORDERED: CEPHALEXIN500 MG ORAL (19:34)
[2018-01-17] MEDS ORDERED: BACITRACIN-P28.35 GM TP (19:34)
[2018-01-17] MEDS ORDERED: TYLENOL EXTRA500 MG ORAL (19:34)
[2018-01-17 19:50] VITALS: BP 115/71
== END 2018-01-17 19:50 | disposition home or self-care (01) ==
LOC: EMR 19:27
DX: S80.862A Insect bite (nonvenomous), left lower leg, initial encounter (principal); W57.XXXA Bitten or stung by nonvenomous insect and other nonvenomous arthropods, initial encounter; Y92.9 Unspecified place or not applicable; Z23 Encounter for immunization
CPT/HCPCS: 90471; 90715; 99283

== ENCOUNTER 2018-12-06 18:50 | Emergency (ER) | payer BC, OTHER ==
[~2018-12-06] VITALS: Ht 162.6 cm; Wt 49.9 kg
[~2018-12-06 18:50] MED LIST changes: +BACITRACIN-P28.35 GM TP; +CEPHALEXIN500 MG ORAL; +TYLENOL EXTRA500 MG ORAL
[2018-12-06] MEDS ORDERED: NKM (18:57)
--- NOTE | 2018-12-06 19:15 | NUR ---
ED Nurse Note: Recieved pt from home with c/o posterior head pain at 9/10, s/p hit head on rack in closet while cleaning, denies k.o, no bleeding, swelling or hematoma noted, pt denies dizziness or visual changes or nausea, pt drove here and is ambulatory, will resume care as ordered and continue to closely montor.
--- NOTE | 2018-12-06 20:08 | Emergency Room Report ---
History of Present Illness General Chief Complaint: Head Injury Source: Patient Present Illness HPI 43 YO Female presents to the ED c/o 02/14 in severity tenderness and swelling to the Right side of the head with no LOC, no AMS, no Dizziness. No midline neck or back pain. No nausea or vomiting. Has not taken any OTC medications to relieve her symptoms. pain exacerbated with palpation of the right side of the scalp. No other aggravating or relieving factors at this time. Denies taking blood thinning medication. Allergies: Coded Allergies: No Known Allergies (Unverified , 04/29/13) Patient History Past Medical History: see triage record Past Surgical History: none Pertinent Family History: none Now: No Reviewed Nursing Documentation: PMH: Agreed; PSxH: Agreed Nursing Documentation-PMH Past Medical History: No History, Except For Hx Cardiac Problems: Yes - HX PALPITATIONS Hx Cancer: No Hx Gastrointestinal Problems: No Hx Neurological Problems: No Review of Systems All Other Systems: negative except mentioned in HPI Physical Exam Vital Signs Date Time Temp Pulse Resp B/P (MAP) Pulse Ox O2 Delivery O2 Flow Rate FiO2 12/06/18 18:53 99.0 69 17 120/77 (91) 97 Room Air Sp02 EP Interpretation: reviewed, normal General Appearance: no apparent distress, alert, GCS 15, non-toxic Head: normocephalic, other - TTP, swelling right scalp/right side of the head, no open wounds, no visible bruises. Eyes: bilateral eye normal inspection, bilateral eye PERRL, bilateral eye EOMI ENT: hearing grossly normal, normal voice Neck: full range of motion, no bony tend Respiratory: lungs clear, normal breath sounds, speaking full sentences Cardiovascular #1: regular rate, rhythm Musculoskeletal: back normal, gait/station normal, normal range of motion, non- tender Neurologic: alert, oriented x3, responsive, motor strength/tone normal, sensory intact, normal gait, speech normal, no pronator, grossly normal, grossly normal Psychiatric: judgement/insight normal Medical Decision Making PA Attestation Dr. James Is my supervising Physician whom patient management has been discussed with. Diagnostic Impression: Primary Impression: Contusion of scalp, initial encounter Additional Impressions: Contusion of scalp Qualified Codes: S00.03XA - Contusion of scalp, initial encounter Head ache Qualified Codes: R51 - Headache ER Course 43 YO Female presents to the ED c/o 02/14 in severity tenderness and swelling to the Right side of the head with no LOC, no AMS, no Dizziness. No midline neck or back pain. No nausea or vomiting. Has not taken any OTC medications to relieve her symptoms. pain exacerbated with palpation of the right side of the scalp. No other aggravating or relieving factors at this time. Denies taking blood thinning medication. Ddx considered but are not limited to Fracture, dislocation, contusion, concussion Sprain/Strain/Spasm, hematoma Vital signs: are WNL, pt. is afebrile H&PE are most consistent with contusion, no evidence of focal neurological deficit, no loss of consciousness. ORDERS: none required at this time. PE and HPI do not indicate CT at this time. ED INTERVENTIONS: - Tylenol PO -D/w Pt. reasoning for not doing Head CT, also discussed red flag symptoms to keep an eye out for that would indicate prompt return to the ED. - Pt. verbalizes her understanding and agreement with proposed treatment plan. DISCHARGE: At this time pt. is stable for d/c to home. Will provide printed patient care instructions, and any necessary prescriptions. Care plan and follow up instructions have been discussed with the patient prior to discharge. Last Vital Signs Date Time Temp Pulse Resp B/P (MAP) Pulse Ox O2 Delivery O2 Flow Rate FiO2 12/06/18 18:53 99.0 69 17 120/77 (91) 97 Room Air Disposition: HOME, SELF-CARE Condition: Stable Scripts Acetaminophen* (ACETAMINOPHEN EXTRA STRENGTH*) 500 Mg Tablet 500 MG ORAL Q6H for headache, #30 TAB Prov: Tamara Dooley 12/06/18 Departure Forms: Return to Work Return to Work Date: Dec 10, 2018 Work Restrictions: None Other Restrictions: May return Sooner if Symptoms have resolved. Return to Full Activity: Dec 10, 2018 Patient Instructions: Facial or Scalp Contusion, [id number] Additional Instructions: Take medications as directed. Follow up with a Primary Care Provider in 3-5 days, even if your symptoms have resolved. --Please review list of primary care clinics, if you do not already have a primary care provider Return sooner to ED if new symptoms occur, or current symptoms become worse. - Please note that this Emergency Department Report was dictated using [employer] lead technology software, occasionally this can lead to erroneous entry secondary to interpretation by the dictation equipment. Tamara Dooley Dec 06, 2018 20:08
[2018-12-06] MEDS ORDERED: ACETAMINOPHEN500 M3 ORAL (20:09)
[2018-12-06 20:15] VITALS: BP 129/64
[2018-12-06 20:25] VITALS: BP 129/64
--- NOTE | 2018-12-06 20:25 | NUR ---
ER DISCHARGE NOTE: Patient is cleared to be discharged per ERMD, pt is aox4, on room air, with stable vital signs. pt was given dc and prescription instructions, pt was able to verbalize understanding, pt id band removed without complications. pt is able to ambulate with steady gait. pt took all belongings.
== END 2018-12-06 20:25 | disposition home or self-care (01) ==
LOC: EMR 19:10
DX: S00.03XA Contusion of scalp, initial encounter (principal); W22.8XXA Striking against or struck by other objects, initial encounter; Y92.89 Other specified places as the place of occurrence of the external cause; R51 Headache
CPT/HCPCS: 99282

== ENCOUNTER 2018-12-11 12:04 | Emergency (ER) | payer OTHER ==
[~2018-12-11] VITALS: Ht 162.6 cm; Wt 49.9 kg
[~2018-12-11 12:04] MED LIST changes: +ACETAMINOPHEN500 M3 ORAL
[2018-12-11 12:11] VITALS: BP 117/79
--- NOTE | 2018-12-11 12:20 | NUR ---
ED Nurse Note: Patient walked into ED c/o headache and nausea that has been persistant. patient visited [facility] ED on 12/06/18 for the same complaint. patient is alert awake x4 ambulatory, breathing unlabored and even.
--- NOTE | 2018-12-11 12:41 | Emergency Room Report ---
History of Present Illness General Chief Complaint: Headache Source: Patient Present Illness HPI 43-year-old female complaining of persistent headache with nausea x5 days. Patient states that she hit her head against the apparatus at work. Pain is 10/ 10, sharp in quality. Denies LOC. Denies vision change, vomiting, weakness, bowel/bladder incontinence. Normal gait. Patient drove herself to the ER. Patient that she has been taking ibuprofen and Tylenol for pain. Allergies: Coded Allergies: No Known Allergies (Unverified , 04/29/13) Patient History Past Medical History: none Past Surgical History: none Social History: Denies: smoking, alcohol use, drug use Last Menstrual Period: 12/06/2018 Now: No Nursing Documentation-[facility] Past Medical History: No History, Except For Hx Cardiac Problems: Yes - HX PALPITATIONS Hx Cancer: No Hx Gastrointestinal Problems: No Hx Neurological Problems: No Review of Systems Gastrointestinal: Reports: nausea Neurological: Reports: headache Physical Exam Vital Signs Date Time Temp Pulse Resp B/P (MAP) Pulse Ox O2 Delivery O2 Flow Rate FiO2 12/11/18 12:11 98.4 72 18 117/79 (92) 98 Room Air Sp02 EP Interpretation: normal General Appearance: no apparent distress, alert, GCS 15, non-toxic Head: normocephalic, atraumatic Eyes: bilateral eye normal inspection, bilateral eye PERRL ENT: hearing grossly normal, normal pharynx, no angioedema, normal voice Respiratory: chest non-tender, lungs clear, normal breath sounds, speaking full sentences Cardiovascular #1: regular rate, rhythm, no edema Neurologic: alert, oriented x3, responsive, motor strength/tone normal, sensory intact, speech normal Medical Decision Making PA Attestation This patient was seen under the direct supervision of [Dr. Ronaldo Sood] who directed all aspects of care and diagnostic interpretation. Diagnostic Impression: Primary Impression: Concussion Qualified Codes: S06.0X0D - Concussion without loss of consciousness, subsequent encounter Additional Impression: Head injury Qualified Codes: S09.90XD - Unspecified injury of head, subsequent encounter ER Course ED course HPI: 43-year-old female complaining of persistent headache and nausea x5 days after hitting head against an apparatus at work. Denies LOC. Pt drove herself to the ER. Pt is well-appearing. Normal gait. Pt has no focal neural, arm drift, facial droop, unilateral weakness or numbness, slurred speech , vision impair, therefore acute intracranial emergency is unlikely. Ddx: Contusion versus concussion versus intracranial bleed. HPI & PE consistent with: Acute head injury. Orders/ Interventions: Urine ordered, negative. CT negative for mass-effect, edema or acute bleed. Patient medicated with Zofran 4 mg ODT sublingual for nausea, feels improved upon reassessement. Disposition: Patient stable for discharge home. Will prescribe Zofran 4 mg ODT. Follow-up with PCP in 2 days or return to ED if worsening symptoms, new symptoms, or sudden change in condition. CT/MRI/US Diagnostic Results CT/MRI/US Diagnostic Results : Imaging Test Ordered: CT head without contrast Impression No mass-effect, edema, or acute bleed. Interpreted by radiology. Last Vital Signs Date Time Temp Pulse Resp B/P (MAP) Pulse Ox O2 Delivery O2 Flow Rate FiO2 12/11/18 12:11 98.4 72 18 117/79 (92) 98 Room Air Status: unchanged Disposition: HOME, SELF-CARE Condition: Stable Scripts Ondansetron Odt* (ZOFRAN ODT*) 4 Mg Tab.rapdis 4 MG BC EVERY 8 HOURS PRN for Nausea & Vomiting, #6 TAB 0 Refills Prov: Clarisse Aviles 12/11/18 Clarisse Aviles Dec 11, 2018 12:41
--- NOTE | 2018-12-11 13:57 | Diagnostic Imaging Report ---
Indication: Headache Technique: Contiguous 5 mm thick transaxial imaging of the head obtained in a Siemens Sensation [address] scanner. Soft tissue and bone windows generated. Automatic Exposure Control was utilized. Total Dose length Product (DLP): 1340.[address] Dose Index Volume (CTDIvol): 70.38 mGy Comparison: none Findings: The size and configuration of the cortical sulci, basal cisterns, and ventricles are within normal limits for age. There is no mass effect, midline shift, or edema identified. There is no evidence of acute hemorrhage or abnormal intra-axial or extra-axial fluid collections. The bones and soft tissues are unremarkable. Impression: No mass effect, edema or acute bleed. The CT scanner at [facility] is accredited by the [employer] and the scans are performed using dose optimization techniques as appropriate to a performed exam including Automatic Exposure control.
[2018-12-11] MEDS ORDERED: ONDANSETRON ODT4 MG BC (14:09)
[2018-12-11 14:20] VITALS: BP 117/79
--- NOTE | 2018-12-11 14:20 | NUR ---
ER DISCHARGE NOTE: Patient is cleared to be discharged per JCAKIE YUAN, pt is aox4, on room air, with stable vital signs. pt was given dc and prescription instructions, pt was able to verbalize understanding, pt id band removed without complications. pt is able to ambulate with steady gait. pt took all belongings.
--- NOTE | 2018-12-11 15:29 | NUR ---
Note werner in EDM - 12/11/18 at 1530 by MCKAYLA ER DISCHARGE NOTE: Patient is cleared to be discharged per JACKIE YUAN, pt is aox4, on room air, with stable vital signs. pt was given dc and prescription instructions, pt was able to verbalize understanding, pt id band removed without complications. pt is able to ambulate with steady gait. pt took all belongings.
== END 2018-12-11 14:20 | disposition home or self-care (01) ==
LOC: EMR 13:17
DX: S06.0X0A Concussion without loss of consciousness, initial encounter (principal); S09.90XA Unspecified injury of head, initial encounter; W22.8XXA Striking against or struck by other objects, initial encounter; Y92.9 Unspecified place or not applicable; Y99.0 Civilian activity done for income or pay
CPT/HCPCS: 70450; 81025; 99284

== ENCOUNTER 2019-03-14 19:48 | Emergency (ER) | payer OTHER ==
[~2019-03-14] VITALS: Ht 162.6 cm; Wt 54.4 kg
[~2019-03-14 19:48] MED LIST changes: +ONDANSETRON ODT4 MG BC
[2019-03-14 19:58] VITALS: BP 122/77
--- NOTE | 2019-03-14 19:58 | NUR ---
ED Nurse Note: pt walked in to ED C/O ABD pain for about a week. pt verbalizes lower abdominal pain. pt states she has burning sensation when she urinates. pt denies any N/V/D. pt is alert x4. VSS
--- NOTE | 2019-03-14 20:20 | Emergency Room Report ---
History of Present Illness General Chief Complaint: Abdominal Pain Present Illness HPI 43-year-old female presents to the emergency department complaining of 10 out of 10 severity progressive diffuse lower abdominal pain x1 week. Patient denies nausea, vomiting, constipation or diarrhea. Patient denies recent travel or ill contacts with similar symptoms. Patient denies dysuria, urinary frequency, urgency or hematuria. Patient denies vaginal discharge or pelvic pain. Patient denies suspicion of and she denies suspicion of STI. She denies abdominal tenderness she reports a bloated/stretched feeling in the lower mid abdomen. Patient reports history of ovarian cyst in 2017. Patient denies vaginal bleeding/spotting. She denies any aggravating or relieving factors at this time she also reports previous history of gastritis and H. pylori several years ago. Allergies: Coded Allergies: No Known Allergies (Unverified , 04/29/13) Patient History Past Medical History: see triage record Past Surgical History: none Pertinent Family History: none Last Menstrual Period: 02/25/19 Now: No : 0 Reviewed Nursing Documentation: PMH: Agreed; PSxH: Agreed Nursing Documentation-PMH Hx Cardiac Problems: Yes - HX PALPITATIONS Hx Cancer: No Hx Gastrointestinal Problems: No Hx Neurological Problems: No Review of Systems All Other Systems: negative except mentioned in HPI Physical Exam Vital Signs Date Time Temp Pulse Resp B/P (MAP) Pulse Ox O2 Delivery O2 Flow Rate FiO2 03/14/19 19:50 97.3 72 16 123/77 (92) 100 Room Air 03/14/19 19:58 98 Sp02 EP Interpretation: reviewed, normal General Appearance: no apparent distress, alert, GCS 15, non-toxic Head: normocephalic, atraumatic Eyes: bilateral eye normal inspection, bilateral eye PERRL ENT: hearing grossly normal, normal voice Neck: full range of motion Respiratory: lungs clear, normal breath sounds, speaking full sentences Cardiovascular #1: regular rate, rhythm Gastrointestinal: normal bowel sounds, soft, non-distended, no guarding, tenderness - Mild tenderness to deep palpation in the mid uterine lower abdominal area and some right adnexal tenderness, negative McBurney's point tenderness or Traylor sign. No evidence of peritonitis. Genitourinary: normal inspection, no CVA tenderness Musculoskeletal: gait/station normal, normal range of motion, non-tender Neurologic: alert, oriented x3, responsive, motor strength/tone normal, sensory intact, speech normal, grossly normal Psychiatric: judgement/insight normal Skin: no rash Lymphatic: no adenopathy Medical Decision Making PA Attestation Dr. De Luna is my supervising Physician whom patient management has been discussed with. Diagnostic Impression: Primary Impression: Urinary tract infection Qualified Codes: N30.01 - Acute cystitis with hematuria ER Course 43-year-old female presents to the emergency department complaining of 10 out of 10 severity progressive diffuse lower abdominal pain x1 week. Patient denies nausea, vomiting, constipation or diarrhea. Patient denies recent travel or ill contacts with similar symptoms. Patient denies dysuria, urinary frequency, urgency or hematuria. Patient denies vaginal discharge or pelvic pain. Patient denies suspicion of and she denies suspicion of STI. She denies abdominal tenderness she reports a bloated/stretched feeling in the lower mid abdomen. Patient reports history of ovarian cyst in 2017. Patient denies vaginal bleeding/spotting. She denies any aggravating or relieving factors at this time she also reports previous history of gastritis and H. pylori several years ago.Pt. presents to the ED c/o [ ] Ddx considered but are not limited to Diverticulitis, acute appy, diarrhea,UC, PUD, GE, pancreatitis, gallstone, ovarian torsion, ectopic , PID tubo-ovarian abscess. Vital signs: are WNL, pt. is afebrile H&PE are most consistent with possible UTI versus ovarian/uterine etiology of pain, no evidence to suggest acute abdomen on physical exam, low suspicion for ovarian torsion. ORDERS: -CBC, CMP, LIPASE: Within normal limits -UA: Moderate bacteria with inflammatory marker elevation consistent with UTI -URINE HCG: Negative --Pelvic ultrasound: " No acute processes normal ultrasound examination." Per official radiology report- Please see report for specific details. ED INTERVENTIONS: -Macrobid 100 mg p.o. -Pyridium 200 mg p.o. DISCHARGE: At this time pt. is stable for d/c to home. Will provide printed patient care instructions, and any necessary prescriptions. Care plan and follow up instructions have been discussed with the patient prior to discharge. Labs Test 03/14/19 20:21 White Blood Count 6.6 K/UL (4.8-10.8) Red Blood Count 5.54 M/UL (4.20-5.40) Hemoglobin 16.9 G/DL (12.0-16.0) Hematocrit 48.7 % (37.0-47.0) Mean Corpuscular Volume 88 FL (80-99) Mean Corpuscular Hemoglobin 30.5 PG (27.0-31.0) Mean Corpuscular Hemoglobin Concent 34.7 G/DL (32.0-36.0) Red Cell Distribution Width 10.1 % (11.6-14.8) Platelet Count 181 K/UL (150-450) Mean Platelet Volume 9.4 FL (6.5-10.1) Neutrophils (%) (Auto) 42.0 % (45.0-75.0) Lymphocytes (%) (Auto) 47.0 % (20.0-45.0) Monocytes (%) (Auto) 7.8 % (1.0-10.0) Eosinophils (%) (Auto) 1.8 % (0.0-3.0) Basophils (%) (Auto) 1.4 % (0.0-2.0) Urine Color Pale yellow Urine Appearance Slightly cloudy Urine pH 7 (4.5-8.0) Urine Specific [place] 1.010 (1.005-1.035) Urine Protein Negative (NEGATIVE) Urine Glucose (UA) Negative (NEGATIVE) Urine Ketones 2+ (NEGATIVE) Urine Blood 1+ (NEGATIVE) Urine Nitrite Negative (NEGATIVE) Urine Bilirubin Negative (NEGATIVE) Urine Urobilinogen Normal MG/DL (0.0-1.0) Urine Leukocyte Esterase 3+ (NEGATIVE) Urine RBC 2-4 /HPF (0 - 2) Urine WBC 20-30 /HPF (0 - 2) Urine Squamous Epithelial Cells Moderate /LPF (NONE/OCC) Urine Amorphous Sediment Few /LPF (NONE) Urine Bacteria Moderate /HPF (NONE) Urine HCG, Qualitative Negative (NEGATIVE) Sodium Level 140 MMOL/L (136-145) Potassium Level 3.3 MMOL/L (3.5-5.1) Chloride Level 101 MMOL/L (98-107) Carbon Dioxide Level 26 MMOL/L (21-32) Anion Gap 13 mmol/L (5-15) Blood Urea Nitrogen 9 mg/dL (7-18) Creatinine 0.8 MG/DL (0.55-1.30) Estimat Glomerular Filtration Rate > 60 mL/min (>60) Glucose Level 92 MG/DL (74-106) Calcium Level 10.0 MG/DL (8.5-10.1) Total Bilirubin 0.6 MG/DL (0.2-1.0) Aspartate Amino Transf (AST/SGOT) 22 U/L (15-37) Alanine Aminotransferase (ALT/SGPT) 26 U/L (12-78) Alkaline Phosphatase 83 U/L (46-116) Total Protein 9.8 G/DL (6.4-8.2) Albumin 5.2 G/DL (3.4-5.0) Globulin 4.6 g/dL Albumin/Globulin Ratio 1.1 (1.0-2.7) Lipase 131 U/L (73-393) CT/MRI/US Diagnostic Results CT/MRI/US Diagnostic Results : Imaging Test Ordered: Pelvic ultrasound Impression " No acute processes normal ultrasound examination." Per official radiology report- Please see report for specific details. Last Vital Signs Date Time Temp Pulse Resp B/P (MAP) Pulse Ox O2 Delivery O2 Flow Rate FiO2 03/14/19 19:58 80 18 Room Air 98 03/14/19 19:58 97.3 122/77 100 Disposition: HOME, SELF-CARE Condition: Stable Scripts Phenazopyridine Hcl* (PYRIDIUM*) 200 Mg Tablet 200 MG ORAL THREE TIMES A DAY for 3 Days, #9 TAB 0 Refills Prov: Tamara Dooley 03/14/19 Nitrofurantoin Monohyd/M-Cryst* (MACROBID 100 MG*) 100 Mg Capsule 100 MG ORAL EVERY 12 HOURS for 7 Days, #14 CAP Prov: Tamara Dooley 03/14/19 Patient Instructions: Urinary Tract Infection Additional Instructions: Take medications as directed. Pyridium will cause your urine to change color (Red/[place]), this is a normal side effect of the medication. Follow up with a Primary Care Provider in 3-5 days, even if your symptoms have resolved. Return sooner to ED if new symptoms occur, or current symptoms become worse. - Please note that this Emergency Department Report was dictated using [employer] still runner compounder technology software, occasionally this can lead to erroneous entry secondary to interpretation by the dictation equipment. Tamara Dooley Mar 14, 2019 20:20
--- NOTE | 2019-03-14 20:42 | NUR ---
ED Nurse Note: Blood and urine sample sent down to lab
[2019-03-14 20:51] LABS: BASOPHILS % (AUTO) 1.4 % (0.0-2.0); EOSINOPHILS % (AUTO) 1.8 % (0.0-3.0); HEMATOCRIT 48.7 % (37.0-47.0); HEMOGLOBIN 16.9 G/DL (12.0-16.0); MEAN CORPUSCULAR VOLUME 88 FL (80-99); MONOCYTES % (AUTO) 7.8 % (1.0-10.0); PLATELET COUNT 181 K/UL (150-450); RED BLOOD COUNT 5.54 M/UL (4.20-5.40); RED CELL DISTRIBUTION WIDTH 10.1 % (11.6-14.8); WHITE BLOOD COUNT 6.6 K/UL (4.8-10.8)
--- NOTE | 2019-03-14 20:53 | NUR ---
ED Nurse Note: pt was taken to have ultrasound accompanied by commercial technician
[2019-03-14 20:56] LABS: BILIRUBIN, URINE NEGATIVE (NEGATIVE); COLOR,URINE PALE YELLOW; GLUCOSE, URINE (UA) NEGATIVE (NEGATIVE); KETONES,URINE 2+ (NEGATIVE); LEUKOCYTE ESTERASE ,URINE 3+ (NEGATIVE); NITRITE,URINE NEGATIVE (NEGATIVE); PH,URINE 7 (4.5-8.0); PROTEIN,URINE NEGATIVE (NEGATIVE); UROBILINOGEN,URINE NORMAL MG/DL (0.0-1.0)
[2019-03-14 21:00] LABS: APPEARANCE,URINE SLIGHTLY CLOUDY
[2019-03-14 21:04] LABS: ANION GAP 13 mmol/L (5-15); BLOOD UREA NITROGEN 9 mg/dL (7-18); CARBON DIOXIDE 26 MMOL/L (21-32); CHLORIDE 101 MMOL/L (98-107); CREATININE 0.8 MG/DL (0.55-1.30); POTASSIUM 3.3 MMOL/L (3.5-5.1); SODIUM 140 MMOL/L (136-145)
[2019-03-14 21:08] LABS: ALANINE AMINOTRANSFERASE 26 U/L (12-78); ALBUMIN 5.2 G/DL (3.4-5.0); ALBUMIN/GLOBULIN RATIO 1.1 (1.0-2.7); ALKALINE PHOSPHATASE 83 U/L (46-116); ASPARTATE AMINO TRANSFERASE 22 U/L (15-37); BILIRUBIN,TOTAL 0.6 MG/DL (0.2-1.0)
--- NOTE | 2019-03-14 21:10 | NUR ---
ED Nurse Note: Returned back from ultrasound
[2019-03-14] MEDS ORDERED: PHENAZOPYRIDIN200 MG ORAL (21:44)
[2019-03-14] MEDS ORDERED: NITROFURANTOIN100 M2 ORAL (21:44)
[2019-03-14] MEDS ORDERED: Phenazopyridine 200mg tab ORAL ONE (21:45)
[2019-03-14 21:59] VITALS: BP 125/86
--- NOTE | 2019-03-14 21:59 | NUR ---
ER DISCHARGE NOTE: Patient is cleared to be discharged per ERMD, pt is aox4, on room air, with stable vital signs. pt was given dc and prescription instructions, pt was able to verbalize understanding, pt id band and iv site removed without complications. pt is able to ambulate with steady gait. pt took all belongings.
--- NOTE | 2019-03-15 09:15 | Diagnostic Imaging Report ---
Indication:Lower abdominal and pelvic pain Technique: Grayscale and duplex Doppler imaging of the pelvis performed utilizing a transabdominal and endovaginal scan. Comparison: None Findings: Study is limited as patient was unable to tolerate the endovaginal portion of the study. The study is therefore obtained as a transabdominal scan only. The uterus is grossly unremarkable measures 7.6 x 6.5 x 4.2 cm. The endometrium is about 9 to 10 mm in thickness and appears uniform. The ovaries show dopplerable blood flow and appear relatively normal but not evaluated well. Right ovary is 4 x 3.6 x 2.3 cm. Left ovary 3.7 x 2.6 x 1.8 cm. There is no free fluid. IMPRESSION: Grossly negative exam. Evaluation limited.
== END 2019-03-14 21:59 | disposition home or self-care (01) ==
LOC: EMR 20:15
DX: N30.01 Acute cystitis with hematuria (principal)
CPT/HCPCS: 36415; 76856; 80053; 81003; 81025; 83690; 85025; 87086; 99284

== ENCOUNTER 2019-11-04 08:20 | Emergency (ER) | payer OTHER ==
[~2019-11-04] VITALS: Ht 162.6 cm; Wt 52.2 kg
[~2019-11-04 08:20] MED LIST changes: +PHENAZOPYRIDIN200 MG ORAL
[2019-11-04 08:32] VITALS: BP 127/76
--- NOTE | 2019-11-04 08:34 | NUR ---
ED Nurse Note: Patient walked in to ER c/o headache, stated "feels heavy" x 3 days with nausea, "a little bit" dizziness, worsened dizziness with position changes. Reports no head injury. Patient presented calm, AAO x4, VSS at this time, pt walkes with steady gait.
[2019-11-04] MEDS ORDERED: Ketorolac 30mg Inj IV ONE (08:45)
[2019-11-04] MEDS ORDERED: DiphenhydrAMINE 50mg/ml Inj IVP ONE (08:45)
[2019-11-04] MEDS ORDERED: Metoclopramide 10mg/2ml Inj IVP ONE (08:45)
--- NOTE | 2019-11-04 08:46 | Emergency Room Report ---
History of Present Illness General Chief Complaint: Headache Source: Patient Present Illness HPI Disclaimer: Please note that this report is being documented using [employer] technology. This can lead to erroneous entry secondary to incorrect interpretation by the dictating instrument. HPI: 44-year-old female presents for evaluation of headache. She reports 3 days generalized diffuse headache, possibly worse at the temples. Reports a heavy and pressure sensation but denies pain with extraocular movements, eye pain, visual changes. She reports associated nausea but denies photosensitivity or sensitivity. She reports some lightheadedness but denies vertiginous symptoms, syncope. No head trauma reported. Denies fevers, chills , URI symptoms, cough, chest pain, palpitations, abdominal pain, vomiting, diarrhea. Has been using Tylenol at home with no improvement. Denies history of migraines. PMH: Denies PSH: Denies Allergies: Denies Social Hx: Denies alcohol, tobacco or drug use Allergies: Coded Allergies: No Known Allergies (Unverified , 04/29/13) COVID-19 Screening Contact w/high risk pt: Yes Recent Travel to affected area: No Experienced COVID-19 symptoms?: No COVID-19 Testing performed SHELVER: Yes - 4 weeks ago COVID-19 Screening: Negative COVID-19 COVID-19 Testing Source: throat Patient History Last Menstrual Period: on period Nursing Documentation-PMH Past Medical History: No Stated History Hx Cardiac Problems: Yes - HX PALPITATIONS Hx Cancer: No Hx Gastrointestinal Problems: No Hx Neurological Problems: No Review of Systems All Other Systems: negative except mentioned in HPI Physical Exam Vital Signs Date Time Temp Pulse Resp B/P (MAP) Pulse Ox O2 Delivery O2 Flow Rate FiO2 11/04/19 08:24 98.2 76 16 127/76 (93) 98 Room Air General: Awake and alert, no acute distress HEENT: NC/AT. EOMI. PERRLA. Moist mucous membranes. Cardiovascular: RRR. S1 and S2 normal. No murmur appreciated Resp: Normal work of breathing. No cough, wheezing or crackles appreciated Abdomen: Abdomen is soft, nondistended. Nontender Skin: Intact. No abrasions, laceration or rash over the exposed skin MSK: Normal tone and bulk. Moving all extremities. No obvious deformity. Neuro: Awake and alert. Mentating appropriately. Medical Decision Making Diagnostic Impression: Primary Impression: Headache ER Course Is a well-appearing 44-year-old female with no reported medical history presenting for evaluation of 3 days generalized headache, nausea and lightheadedness. Differential includes was not limited to generalized headache , tension headache, migraine headache, cluster headache, dehydration, anemia, electrolyte abnormality to name a few. Patient's exam is nonfocal, ambulating with steady gait, no reported head trauma. Will obtain screening labs, provide IV fluids and migraine cocktail consisting of Toradol, Reglan, Benadryl. Do not believe she requires emergent imaging at this time. Will monitor for improvement and advance work-up as needed. 1000: Patient's headache is now resolved following migraine cocktail. Labs are returned within normal limits. She now states that she has been under a great deal of stress and sleeping poorly. I advised her to discuss with her PMD. Will prescribe NSAIDs for headache. Discussed reasons to return to the emergency department. She understands and agrees with the treatment plan. Laboratory Tests Test 11/04/19 08:50 White Blood Count 4.1 K/UL (4.8-10.8) L Red Blood Count 4.59 M/UL (4.20-5.40) Hemoglobin 14.2 G/DL (12.0-16.0) Hematocrit 43.3 % (37.0-47.0) Mean Corpuscular Volume 94 FL (80-99) Mean Corpuscular Hemoglobin 31.1 PG (27.0-31.0) H Mean Corpuscular Hemoglobin Concent 32.9 G/DL (32.0-36.0) Red Cell Distribution Width 12.0 % (11.6-14.8) Platelet Count 141 K/UL (150-450) L Mean Platelet Volume 10.7 FL (6.5-10.1) H Neutrophils (%) (Auto) 53.4 % (45.0-75.0) Lymphocytes (%) (Auto) 34.9 % (20.0-45.0) Monocytes (%) (Auto) 8.4 % (1.0-10.0) Eosinophils (%) (Auto) 2.0 % (0.0-3.0) Basophils (%) (Auto) 1.2 % (0.0-2.0) Sodium Level 138 MMOL/L (136-145) Potassium Level 3.5 MMOL/L (3.5-5.1) Chloride Level 104 MMOL/L (98-107) Carbon Dioxide Level 26 MMOL/L (21-32) Anion Gap 8 mmol/L (5-15) Blood Urea Nitrogen 7 mg/dL (7-18) Creatinine 0.7 MG/DL (0.55-1.30) Estimated Glomerular Filtration Rate > 60 mL/min (>60) Glucose Level 95 MG/DL (74-106) Calcium Level 8.5 MG/DL (8.5-10.1) Last Vital Signs Date Time Temp Pulse Resp B/P (MAP) Pulse Ox O2 Delivery O2 Flow Rate FiO2 11/04/19 08:32 98.2 16 127/76 98 Room Air 11/04/19 08:24 76 Disposition: HOME, SELF-CARE Condition: Stable Scripts Ibuprofen* (MOTRIN*) 600 Mg Tablet 600 MG ORAL Q6H PRN for For Pain, #30 TAB 0 Refills Prov: Leroy De Luna MD 11/04/19 Leroy De Luna MD Nov 04, 2019 08:46
[2019-11-04] MEDS ORDERED: Metoclopramide 10mg/2ml Inj ONE (09:03)
[2019-11-04] MEDS ORDERED: DiphenhydrAMINE 50mg/ml Inj ONE (09:03)
[2019-11-04 09:04] LABS: BASOPHILS % (AUTO) 1.2 % (0.0-2.0); HEMATOCRIT 43.3 % (37.0-47.0); HEMOGLOBIN 14.2 G/DL (12.0-16.0); LYMPHOCYTES % (AUTO) 34.9 % (20.0-45.0); MEAN CORPUSCULAR VOLUME 94 FL (80-99); MONOCYTES % (AUTO) 8.4 % (1.0-10.0); NEUTROPHILS % (AUTO) 53.4 % (45.0-75.0); PLATELET COUNT 141 K/UL (150-450); RED BLOOD COUNT 4.59 M/UL (4.20-5.40); WHITE BLOOD COUNT 4.1 K/UL (4.8-10.8)
[2019-11-04] MEDS ORDERED: Ketorolac 30mg Inj ONE (09:04)
[2019-11-04 09:16] LABS: ANION GAP 8 mmol/L (5-15); BLOOD UREA NITROGEN 7 mg/dL (7-18); CALCIUM 8.5 MG/DL (8.5-10.1); CARBON DIOXIDE 26 MMOL/L (21-32); CHLORIDE 104 MMOL/L (98-107); CREATININE 0.7 MG/DL (0.55-1.30); POTASSIUM 3.5 MMOL/L (3.5-5.1); SODIUM 138 MMOL/L (136-145)
[2019-11-04] MEDS ORDERED: IBUPROFEN600 M1 ORAL (09:29)
[2019-11-04 10:09] VITALS: BP 127/76
--- NOTE | 2019-11-04 10:10 | NUR ---
ED Nurse Note: Pt cleared by health care Provider for discharge. DC instructions/prescription was given and explained to pt and verbalized understanding of teachings. All medical deviecs such as ID band removed. Pt is AAO x4, ambulatory and left with all personal belongings.
== END 2019-11-04 10:10 | disposition home or self-care (01) ==
LOC: EMR 08:50
DX: R51 Headache (principal); R11.0 Nausea
CPT/HCPCS: 36415; 80048; 85025; 96361; 96374; 96375; 99284; J1200; J1885; J2765; J7030

== ENCOUNTER 2020-03-22 10:29 | Emergency (ER) | payer OTHER ==
[~2020-03-22] VITALS: Ht 162.6 cm; Wt 52.2 kg
[~2020-03-22 10:29] MED LIST changes: +IBUPROFEN600 M1 ORAL
[2020-03-22 10:40] VITALS: BP 126/71
--- NOTE | 2020-03-22 10:40 | NUR ---
ED Nurse Note: Pt walked in from home c/o right lower abd pain radiating to back x 5 days. Pt denies n/v/diarrhea. Respirations even and unlabored on room air. Vitals stable as documented. A+Ox4, speaking in complete sentences.
[2020-03-22] MEDS ORDERED: Ketorolac 30mg Inj IV ONE (10:45)
--- NOTE | 2020-03-22 10:47 | Emergency Room Report ---
History of Present Illness General Chief Complaint: Abdominal Pain Source: Patient Present Illness HPI Patient is a 44-year-old female denies any significant past medical history who presents to the ER complaining of abdominal pain. Patient complains of right- sided abdominal pain which has been intermittent for the past week. She denies any fever or chills. She denies any nausea or vomiting. She denies any diarrhea. She denies any dysuria or hematuria. Last menstrual period was 1 week ago. She denies any chest pain or shortness of breath. She states that she took some Aleve which helped her pain. Allergies: Coded Allergies: No Known Allergies (Unverified , 04/29/13) COVID-19 Screening Contact w/high risk pt: No Recent Travel to affected area: No Experienced COVID-19 symptoms?: No COVID-19 Testing performed SCREENING TECH: No Patient History Reviewed Nursing Documentation: PMH: Agreed; PSxH: Agreed Nursing Documentation-PMH Past Medical History: No History, Except For Hx Cardiac Problems: Yes - HX PALPITATIONS Hx Cancer: No Hx Gastrointestinal Problems: No Hx Neurological Problems: No Review of Systems All Other Systems: negative except mentioned in HPI Physical Exam Vital Signs Date Time Temp Pulse Resp B/P (MAP) Pulse Ox O2 Delivery O2 Flow Rate FiO2 03/22/20 10:32 96.8 88 15 117/76 (90) 99 Room Air Sp02 EP Interpretation: reviewed, normal General Appearance: no apparent distress, alert, GCS 15, non-toxic Head: normocephalic, atraumatic Eyes: bilateral eye normal inspection, bilateral eye PERRL ENT: hearing grossly normal, normal pharynx, no angioedema, normal voice Neck: full range of motion, supple/symm/no masses Respiratory: chest non-tender, lungs clear, normal breath sounds, speaking full sentences Cardiovascular #1: regular rate, rhythm, no edema Gastrointestinal: other - Right upper quadrant tenderness to palpation with no guarding or rebound Rectal: deferred Genitourinary: no CVA tenderness Musculoskeletal: normal range of motion, no calf tenderness, no lower extremity edema Neurologic: apartment leasing agent III-XII nml as tested, oriented x3 Psychiatric: no suicidal/homicidal ideation Skin: no rash Lymphatic: no adenopathy Medical Decision Making Diagnostic Impression: Primary Impression: Abdominal pain Additional Impressions: Ileus Cyst of gallbladder ER Course Patient's vital signs are stable. Patient's labs demonstrate no significant acute abnormalities. Patient's ultrasound demonstrates gallbladder cyst. Patient CT abdomen pelvis demonstrates mildly prominent fluid and gas-filled small loops of bowel suggestive of enteritis or ileus. I have told the patient of all of these results. I will start her on Reglan. I have told her to obtain gastroenterology referral. After discussing risks and benefits of further diagnostics, treatment plans, as well as indications for and risks of admission, the patient is agreeable to being discharged home. I have explained that their evaluation and treatment in the emergency department today is an important step towards them achieving better health but that their evaluation today is not intended to replace further evaluation and treatment by a physician in their local clinic. I have explained that while the current findings suggest no immediate life threatening emergency they will require further evaluation and treatment by a physician of their choice in their area. They understand that it will be necessary for them to review the final reports of their ED visit with their clinic physician. We have reviewed indications for return to the Emergency Department. I have explained that additional time may need to pass and/or additional testing as an outpatient may be necessary before a definitive diagnosis can be made. They tell me they are willing to follow up as instructed within the timeframe I recommend. They appear to understand what we discussed. Additionally they understand that if they are unable to be seen by an outpatient physician they are welcome, and in fact should, return to the Emergency Department for a repeat evaluation. The patient is stable at time of discharge. Last Vital Signs Date Time Temp Pulse Resp B/P (MAP) Pulse Ox O2 Delivery O2 Flow Rate FiO2 03/22/20 10:32 96.8 88 15 117/76 (90) 99 Room Air Disposition: HOME, SELF-CARE Condition: Stable Scripts Metoclopramide Hcl* (REGLAN*) 10 Mg Tablet 10 MG ORAL THREE TIMES A DAY, #20 TAB Prov: Ambreen Lyman M.D. 03/22/20 Referrals: NON PHYSICIAN (PCP) Additional Instructions: The patient was provided with discharge instructions, notified to follow-up with a primary care doctor and or specialist in the next 24-48 hours, and to return to the ED if they have worsening of their symptoms. Please note that this report is being documented using [employer] technology. This can lead to erroneous entry secondary to incorrect interpretation by the dictating instrument. Ambreen Lyman M.D. Mar 22, 2020 10:47
[2020-03-22 10:57] LABS: BASOPHILS % (AUTO) 1.1 % (0.0-2.0); EOSINOPHILS % (AUTO) 0.9 % (0.0-3.0); HEMATOCRIT 47.3 % (37.0-47.0); HEMOGLOBIN 15.3 G/DL (12.0-16.0); LYMPHOCYTES % (AUTO) 36.2 % (20.0-45.0); MEAN CORPUSCULAR VOLUME 97 FL (80-99); MONOCYTES % (AUTO) 7.6 % (1.0-10.0); NEUTROPHILS % (AUTO) 54.2 % (45.0-75.0); PLATELET COUNT 165 K/UL (150-450); RED BLOOD COUNT 4.87 M/UL (4.20-5.40); RED CELL DISTRIBUTION WIDTH 12.3 % (11.6-14.8); WHITE BLOOD COUNT 5.3 K/UL (4.8-10.8)
[2020-03-22 10:58] LABS: APPEARANCE,URINE CLEAR; BILIRUBIN, URINE NEGATIVE (NEGATIVE); COLOR,URINE PALE YELLOW; GLUCOSE, URINE (UA) NEGATIVE (NEGATIVE); KETONES,URINE 1+ (NEGATIVE); LEUKOCYTE ESTERASE ,URINE 1+ (NEGATIVE); NITRITE,URINE NEGATIVE (NEGATIVE); PH,URINE 7 (4.5-8.0); PROTEIN,URINE NEGATIVE (NEGATIVE); UROBILINOGEN,URINE NORMAL MG/DL (0.0-1.0)
--- NOTE | 2020-03-22 11:00 | NUR ---
ED Nurse Note: US @ bedside
[2020-03-22 11:07] LABS: ANION GAP 9 mmol/L (5-15); BLOOD UREA NITROGEN 10 mg/dL (7-18); CALCIUM 8.8 MG/DL (8.5-10.1); CARBON DIOXIDE 25 MMOL/L (21-32); CHLORIDE 103 MMOL/L (98-107); CREATININE 0.8 MG/DL (0.55-1.30); POTASSIUM 3.5 MMOL/L (3.5-5.1); SODIUM 137 MMOL/L (136-145)
[2020-03-22 11:11] LABS: ALANINE AMINOTRANSFERASE 21 U/L (12-78); ALBUMIN 4.5 G/DL (3.4-5.0); ALBUMIN/GLOBULIN RATIO 1.2 (1.0-2.7); ALKALINE PHOSPHATASE 69 U/L (46-116); ASPARTATE AMINO TRANSFERASE 24 U/L (15-37); BILIRUBIN,TOTAL 0.6 MG/DL (0.2-1.0)
[2020-03-22] MEDS ORDERED: Omnipaque-300 100ml vial INJ PRN (11:45)
--- NOTE | 2020-03-22 12:23 | Diagnostic Imaging Report ---
EXAM: US Abdomen Limited, Right Upper Quadrant CLINICAL HISTORY: PAIN TECHNIQUE: Real-time ultrasound of the right upper quadrant with image documentation. COMPARISON: Abdominal ultrasound on 12/12/2016 FINDINGS: Liver: Liver measures 11.0 cm. No intrahepatic bile duct dilation. Gallbladder: Stable gallbladder polyp measuring 4 mm. Probable tiny polyp also noted near the gallbladder neck. No stones or sludge. No gallbladder wall thickening or pericholecystic fluid. Common bile duct: Normal common bile duct measuring 2.7 mm. No stones. No dilation. Pancreas: Visualized portions of the pancreas are grossly unremarkable. Right kidney: Right kidney measures 9.5 cm in length. No hydronephrosis or stone. Spleen: Spleen measures 8.5 cm. No focal lesion. Aorta: No aortic aneurysm. Inferior vena cava: Visualized portions of the IVC are grossly unremarkable. Other vasculature: Patent main portal vein with normal directional flow. Other findings: Left kidney measures 8.4 cm in length. No hydronephrosis or stone. IMPRESSION: 1. No acute abnormality. 2. Small gallbladder polyps. No evidence of acute cholecystitis.
[2020-03-22 12:45] VITALS: BP 133/75
--- NOTE | 2020-03-22 12:45 | Diagnostic Imaging Report ---
EXAM: CT Abdomen and Pelvis With Intravenous Contrast CLINICAL HISTORY: PAIN TECHNIQUE: Axial computed tomography images of the abdomen and pelvis with intravenous contrast. CTDI is 3.2 mGy and DLP is 172.10 mGy-cm. One or more of the following dose reduction techniques were used: automated exposure control, adjustment of the mA and/or kV according to patient size, use of iterative reconstruction technique. COMPARISON: CT abdomen/pelvis on FINDINGS: Lung bases: Unremarkable. No mass. No consolidation. ABDOMEN: Liver: Unremarkable. No mass. Gallbladder and bile ducts: Unremarkable. No calcified stones. No ductal dilation. Pancreas: Unremarkable. No mass. No ductal dilation. Spleen: Unremarkable. No splenomegaly. Adrenals: Unremarkable. No mass. Kidneys and ureters: No hydronephrosis or obstructing stone. Stomach and bowel: Prominence of the wall of the rectum may be secondary to underdistention versus proctitis. Mildly prominent fluid and gas-filled small bowel loops are nonspecific but may represent enteritis or ileus in the appropriate clinical setting. Evaluation of the stomach is limited by under distention. PELVIS: Appendix: Normal appendix. Bladder: Distended bladder. No significant bladder wall thickening or stone. Reproductive: Unremarkable as visualized. ABDOMEN and PELVIS: Intraperitoneal space: Small amount of free fluid in the pelvis. No free air. Bones/joints: No acute fracture. No dislocation. Soft tissues: Unremarkable. Vasculature: Unremarkable. No abdominal aortic aneurysm. Lymph nodes: Unremarkable. No enlarged lymph nodes. IMPRESSION: 1. Prominence of the wall of the rectum may be secondary to underdistention versus proctitis. 2. Mildly prominent fluid and gas-filled small bowel loops are nonspecific but may represent enteritis or ileus in the appropriate clinical setting. 3. Small amount of free fluid in the pelvis.
[2020-03-22] MEDS ORDERED: REGLAN10 MG ORAL (12:55)
[2020-03-22 13:05] VITALS: BP 131/83
== END 2020-03-22 13:05 | disposition home or self-care (01) ==
LOC: EMR 10:41
DX: R10.9 Unspecified abdominal pain (principal); K56.7 Ileus, unspecified; K82.8 Other specified diseases of gallbladder
CPT/HCPCS: 36415; 74177; 76700; 80053; 80307; 81003; 81025; 83690; 83735; 85025; 96361; 96374; 99284; J1885; J7030; Q9965

== ENCOUNTER 2020-04-13 10:41 | Emergency (ER) | payer OTHER ==
[~2020-04-13] VITALS: Ht 162.6 cm; Wt 56.7 kg
--- NOTE | 2020-04-13 11:28 | NUR ---
ED Nurse Note:urine sent to labs, U/S being done at the bed side
[2020-04-13 11:32] VITALS: BP 131/75
--- NOTE | 2020-04-13 11:36 | NUR ---
ED Nurse Note:pt. came with c/o pelvic pain for 4 days
[2020-04-13 11:39] LABS: APPEARANCE,URINE CLEAR; BILIRUBIN, URINE NEGATIVE (NEGATIVE); COLOR,URINE PALE YELLOW; GLUCOSE, URINE (UA) NEGATIVE (NEGATIVE); KETONES,URINE NEGATIVE (NEGATIVE); LEUKOCYTE ESTERASE ,URINE NEGATIVE (NEGATIVE); NITRITE,URINE NEGATIVE (NEGATIVE); PH,URINE 6 (4.5-8.0); PROTEIN,URINE NEGATIVE (NEGATIVE); UROBILINOGEN,URINE NORMAL MG/DL (0.0-1.0)
--- NOTE | 2020-04-13 12:21 | Emergency Room Report ---
History of Present Illness General Chief Complaint: Pelvic Pain Source: Patient Present Illness HPI Disclaimer: Please note that this report is being documented using [employer] technology. This can lead to erroneous entry secondary to incorrect interpretation by the dictating instrument. HPI: 44-year-old female presents for evaluation of pelvic pain. Intermittent pain over the right lower groin over the past few days. Denies vaginal bleeding, vaginal discharge, dysuria, hematuria. Denies history of ovarian cysts or fibroids. Denies painful intercourse. LMP last week. Denies upper abdominal pain, nausea, vomiting, diarrhea, fever, chills or other symptoms. She was seen in the emergency department 3 weeks ago complaining of abdominal pain a CT scan was unremarkable at that time. Has not taken anything for pain. No exacerbating or relieving factors identified location. PMH: Denied PSH: Denied Allergies: Denied Social Hx: Denied Allergies: Coded Allergies: No Known Allergies (Unverified , 04/29/13) COVID-19 Screening Contact w/high risk pt: No Recent Travel to affected area: No Experienced COVID-19 symptoms?: No COVID-19 Testing performed AIRPLANE PILOT CHIEF: No Patient History Last Menstrual Period: 03/14 Now: No Nursing Documentation-PMH Past Medical History: No Stated History Hx Cardiac Problems: Yes - HX PALPITATIONS Hx Cancer: No Hx Gastrointestinal Problems: No Hx Neurological Problems: No Review of Systems All Other Systems: negative except mentioned in HPI Physical Exam Vital Signs Date Time Temp Pulse Resp B/P (MAP) Pulse Ox O2 Delivery O2 Flow Rate FiO2 04/13/20 10:52 97.2 81 16 131/75 (93) 98 Room Air General: Awake and alert, no acute distress HEENT: NC/AT. EOMI. Cardiovascular: RRR. S1 and S2 normal. No murmur appreciated Resp: Normal work of breathing. No cough, wheezing or crackles appreciated Abdomen: Abdomen is soft, nondistended. Mild tenderness in the right groin without palpable defect, hernia or mass. No tenderness in the right lower quadrant, negative rebound. Abdomen is soft and no guarding, no masses. No peritoneal signs. Skin: Intact. No abrasions, laceration or rash over the exposed skin MSK: Normal tone and bulk. Moving all extremities. No obvious deformity. Neuro: Awake and alert. Mentating appropriately. Medical Decision Making Diagnostic Impression: Primary Impression: Abdominal pain ER Course Is a 44-year female presenting for evaluation of pelvic pain. Differential includes was not limited to UTI, pyelonephritis, STI, ovarian cyst, ovarian torsion, fibroid uterus, ectopic among others. Patient symptoms are more consistent with ovarian cyst. Ultrasound obtained could not adequately visualize the right ovary but the left was unremarkable. Some trace fluid was noted which may be physiologic or represent a ruptured cyst. CT scan from visit 3 weeks ago was unremarkable. No evidence of urinary tract infection. Do not believe she requires repeat CT imaging. Belly remained soft. Patient will follow up with [facility] on outpatient basis. Instructed to return new or worsening symptoms. Laboratory Tests Test 04/13/20 10:58 Urine Color Pale yellow Urine Appearance Clear Urine pH 6 (4.5-8.0) Urine Specific [place] 1.010 (1.005-1.035) Urine Protein Negative (NEGATIVE) Urine Glucose (UA) Negative (NEGATIVE) Urine Ketones Negative (NEGATIVE) Urine Blood Negative (NEGATIVE) Urine Nitrite Negative (NEGATIVE) Urine Bilirubin Negative (NEGATIVE) Urine Urobilinogen Normal MG/DL (0.0-1.0) Urine Leukocyte Esterase Negative (NEGATIVE) Urine HCG, Qualitative Negative (NEGATIVE) CT/MRI/US Diagnostic Results CT/MRI/US Diagnostic Results : Impression IMPRESSION: No acute abnormality appreciated. Left ovary unremarkable in appearance with demonstrable color and Doppler flow. Right ovary not visualized on transabdominal or endovaginal scanning. This may be technical, related to obscuration from overlying bowel gas. Endometrial thickness within normal limits for the premenopausal female. If patient is postmenopausal then endometrium is abnormally thickened and gynecologic follow-up would be warranted. Dictated By: Laron Mccormick M.D. Electronically Signed By:Laron Mccormick M.D. Signed Date/Time 04/13/20 1302 Last Vital Signs Date Time Temp Pulse Resp B/P (MAP) Pulse Ox O2 Delivery O2 Flow Rate FiO2 04/13/20 11:32 97.2 78 16 131/75 98 Room Air Disposition: HOME, SELF-CARE Condition: Stable Scripts Ibuprofen* (MOTRIN*) 600 Mg Tablet 600 MG ORAL Q6H PRN for For Pain, #30 TAB 0 Refills Prov: Leroy De Luna MD 04/13/20 Referrals: [facility],REFERRING (PCP) Leroy De Luna MD Apr 13, 2020 12:21
[2020-04-13] MEDS ORDERED: IBUPROFEN600 M1 ORAL (12:24)
[2020-04-13] MEDS ORDERED: Ketorolac 30mg Inj IV ONE (12:30)
[2020-04-13 12:35] VITALS: BP 131/75
--- NOTE | 2020-04-13 13:07 | Diagnostic Imaging Report ---
Indication: Pelvic pain. Patient reportedly not . Technique: Transabdominal and endovaginal pelvic ultrasound was performed with duplex Doppler evaluation. Comparison: 03/14/2019 Findings: Suggestion of arcuate configuration of the uterus. Endometrium within normal limits for the premenopausal female measuring 12 mm. Left ovary is unremarkable in appearance. No left adnexal mass lesions identified. Color Doppler flow in the left ovary is demonstrated. Right ovary is not visualized on transabdominal or endovaginal scanning. Trace of free fluid in the cul-de-sac, likely physiologic. Partially imaged bladder is unremarkable. IMPRESSION: No acute abnormality appreciated. Left ovary unremarkable in appearance with demonstrable color and Doppler flow. Right ovary not visualized on transabdominal or endovaginal scanning. This may be technical, related to obscuration from overlying bowel gas. Endometrial thickness within normal limits for the premenopausal female. If patient is postmenopausal then endometrium is abnormally thickened and gynecologic follow-up would be warranted.
== END 2020-04-13 12:35 | disposition home or self-care (01) ==
LOC: EMR 11:10
DX: R10.2 Pelvic and perineal pain (principal)
CPT/HCPCS: 76830; 76856; 81003; 81025; 96374; 99284